=== PATIENT | female | born 1990 | race Caucasian/White ===

== ENCOUNTER 2016-12-10 16:09 | Emergency (ER) | payer OTHER ==
--- NOTE | 2016-12-10 16:55 | UC ---
Complaint Female HPI - HPI Summary HPI Summary: Patient presents with complaints of vaginal bleeding. She states she had an IUD put in in 05/10 and has not had a period since then. This morning she started to bleed and it was heavy. She soak through a tampom and panty liner, changed it, and soak through again. Since then she had used a tampom and what troubles her is that the tampom in dry and there is blood on the string. She denies fever, chills, abdominal pain, pelvic pain associated with her symptoms. She denies light headedness, and foreign body insertion, or trauma that would explain the bleeding. - History Of Current Complaint Chief Complaint: UCGU Stated Complaint: PERSONAL Time Seen by Provider: 12/10/16 16:35 Hx Obtained From: Patient Hx Last Menstrual Period: unk ?: No - Risk Factors Ectopic Risk Factor: Negative - Allergies/Home Medications Allergies/Adverse Reactions: Allergies Allergy/AdvReac Type Severity Reaction Status Date / Time No Known Allergies Allergy Verified 12/10/16 16:19 Home Medications: Home Medications Mirena IUD 12/10/16 [History] PMH/Surg Hx/FS Hx/Imm Hx Previously Healthy: Yes - Surgical History Surgical History: Yes Surgery Procedure, Year, and Place: wisdom teeth - Family History Known Family History: Positive: None - Social History Occupation: Employed Full-time Lives: Alone Alcohol Use: Occasionally Substance Use Type: None Smoking Status (MU): Never Smoked Tobacco Review of Systems Constitutional: Negative Skin: Negative Eyes: Negative ENT: Negative Respiratory: Negative Cardiovascular: Negative Gastrointestinal: Negative Genitourinary: Other - vaginal bleeding. Motor: Negative Neurovascular: Negative Musculoskeletal: Negative Is Patient Immunocompromised?: No All Other Systems Reviewed And Are Negative: Yes Physical Exam Triage Information Reviewed: Yes Appearance: Well-Appearing Vital Signs: Initial Vital Signs Temp 98 F 12/10/16 16:21 Pulse 72 12/10/16 16:21 Resp 17 12/10/16 16:21 Pulse Ox 100 12/10/16 16:21 Vital Signs Reviewed: Yes Eye Exam: Normal ENT Exam: Normal Neck exam: Normal Respiratory Exam: Normal Cardiovascular Exam: Normal Abdominal Exam: Normal, Other - vaginal exam;external genitalia without excoritation, herpetic lesions or rashes. internal exam IUD sting visible in the cervix, no blood from cervix, small amount of red blood noted in the distal vagina on the yoder. Musculoskeletal Exam: Normal Neurological Exam: Normal Psychological Exam: Normal Skin Exam: Normal Complaint Female Dx - Course Course Of Treatment: Patient presents with vaginal bleeding (menstration)pelvic exam revealed visible sting from IUD in cervix, no bleeding from cervix, or from the vaginal yoder, no trauma noted. UA/HCG negative. No abdominal pain, evidence of trauma noted. Patient encouraged to follow up with [facility] TRE[facility] APPRENTICE in [place] tomorrow. - Differential Dx/Diagnosis Differential Diagnosis/HQI/PQRI: Other - menstration Provider Diagnoses: menstration. vaginal bleeding Discharge - Discharge Plan Condition: Stable Disposition: HOME Patient Education Materials: Dysfunctional Uterine Bleeding (ED) Referrals: [facility] [Primary Care Provider] - Additional Instructions: You should follow up at [place] with the provider who put in the IUD.
--- NOTE | 2016-12-11 17:17 | ED ---
Progress - Progress Note Progress Note: neg garderella, marty no foreign exchange clerk Course/Dx - Course Course Of Treatment: Patient presents with vaginal bleeding (menstration)pelvic exam revealed visible sting from IUD in cervix, no bleeding from cervix, or from the vaginal yoder, no trauma noted. UA/HCG negative. No abdominal pain, evidence of trauma noted. Patient encouraged to follow up with AIR CONDITIONING UNIT ASSEMBLER in [place] tomorrow. - Diagnoses Provider Diagnoses: DUB (dysfunctional uterine bleeding)
== END 2016-12-10 17:19 | disposition home or self-care (01) ==
LOC: UCEAST 16:09
DX: N93.9 Abnormal uterine and vaginal bleeding, unspecified (principal); Z97.5 Presence of (intrauterine) contraceptive device; Z32.02 Encounter for pregnancy test, result negative
CPT/HCPCS: 81003; 84702; 87480; 87491; 87510; 87591; 87661; 99212; G0463